=== PATIENT | male | born 1955 | race Caucasian/White ===

== ENCOUNTER 2019-02-19 20:19 | Inpatient (IN) | payer MEDICARE ==
[~2019-02-19] VITALS: Ht 185.4 cm; Wt 73.4 kg
[~2019-02-19 20:19] MED LIST: ACET-2247 PO; ATOR40TA28 PO; DIVA-78 PO; FAMO20 PO; FERR-89 PO; LOXA10CA PO; MELA3TAB66 PO; MULT-34 PO; RISP2 PO; TRAZ-252 PO
[2019-02-19 22:04] LABS: GLUCOSE,POINT OF CARE 119 MG/DL (70-110)
[2019-02-19 22:18] LABS: BASOPHILS % (AUTO) 0.8 % (0.0-2.0); EOSINOPHILS % (AUTO) 2.6 % (1.0-6.0); HEMATOCRIT 28.1 % (41-53); HEMOGLOBIN 8.9 g/dL (13.5-17.5); LYMPHOCYTES # (AUTO) 2.5 K/uL (1.0-4.8); LYMPHOCYTES % (AUTO) 30.6 % (22.0-44.0); MEAN CORPUSCULAR HEMOGLOBIN 33.5 pg (26.0-34.0); MEAN CORPUSCULAR HGB CONC 31.5 G/dL (31.0-37.0); MEAN CORPUSCULAR VOLUME 106 fL (80-100); MONOCYTES # (AUTO) 0.9 K/uL (0.1-1.0); MONOCYTES % (AUTO) 10.9 % (2.0-9.0); NEUTROPHILS # (AUTO) 4.6 K/uL (1.8-7.7); NEUTROPHILS % (AUTO) 55.1 % (40.0-70.0); PLATELET COUNT (AUTO) 383 K/uL (150-450); RED BLOOD CELL COUNT(AUTO) 2.65 MIL/uL (4.50-5.90); RED CELL DISTRIBUTION WIDTH 16.8 % (11.5-14.5)
[2019-02-19 22:37] LABS: AMMONIA 10 umol/L (11-32)
[2019-02-19 22:40] LABS: ALBUMIN 2.2 g/dL (3.4-5.0); BILIRUBIN,TOTAL 0.2 mg/dL (0.1-1.0); CALCIUM, TOTAL 10.2 mg/dL (8.8-10.5); CREATININE 4.56 mg/dL (0.60-1.30); POTASSIUM 3.8 mmol/L (3.5-5.1); TOTAL PROTEIN, SERUM 8.5 g/dL (6.4-8.2)
[2019-02-19 22:41] LABS: TROPONIN I < 0.02 ng/mL (0.00-0.05)
[2019-02-19 22:45] LABS: LACTIC ACID 1.4 mmol/L (0.4-2.0)
[2019-02-19 22:56] LABS: PROTHROMBIN TIME 10.7 SEC (9.4-11.6)
[2019-02-19] MEDS ORDERED: SODIUM CHLORIDE 0.9% 2,000 ML IV ONE (23:00)
[2019-02-19] MEDS ORDERED: 0.9% SODIUM CHLORIDE 10 ML SYRINGE IVP PRN (23:15)
[2019-02-19] MEDS ORDERED: ONDANSETRON HCL 4 MG/2 ML VIAL IVP PRN ×2 (23:15→23:30)
[2019-02-19] MEDS ORDERED: ACETAMINOPHEN 325 MG TABLET PO PRN ×2 (23:15→23:30)
[2019-02-19] MEDS ORDERED: MAGNESIUM HYDROXIDE SUSPENSION 30 ML UDCUP PO PRN (23:30)
[2019-02-19] MEDS ORDERED: BISACODYL 10 MG RECTAL RECTAL SUPPOSITORY PR PRN (23:30)
[2019-02-19] MEDS ORDERED: HYDROCODONE/ACETAMINOPHEN 5-325 MG TABLET PO PRN (23:30)
[2019-02-19] MEDS ORDERED: MORPHINE SULFATE 2 MG/ML SYRINGE IVP PRN (23:30)
[2019-02-19] MEDS ORDERED: DEXTROSE 5%-WATER 1,000 ML IV ONE (23:30)
[2019-02-19 23:56] LABS: APPEARANCE,URINE TURBID (CLEAR); BILIRUBIN,URINE NEGATIVE (NEGATIVE); GLUCOSE, URINE (UA) NEGATIVE (NEGATIVE); KETONES,URINE NEGATIVE (NEGATIVE); LEUKOCYTE ESTERASE ,URINE LARGE (NEGATIVE); NITRATE,URINE POSITIVE (NEGATIVE); OCCULT BLOOD,URINE LARGE (NEGATIVE); PH,URINE 5.5 (5.0-8.0); PROTEIN,URINE SEE CONFIRM (NEGATIVE); UROBILINOGEN,URINE 0.2 mg/dL (<=1.0)
[2019-02-20 00:10] LABS: BACTERIA,URINE Few /HPF (None Seen); RBC,URINE 51-100 /HPF (0-2); WBC,URINE 51-100 /HPF (0-5)
[2019-02-20 00:11] LABS: SULFOSALICYLIC ACID,URINE 1+ (Negative)
[2019-02-20 00:12] LABS: SQUAMOUS EPITHELIAL CELL,UR Few /LPF (None Seen)
[2019-02-20 00:45] VITALS: BP 112/71
[2019-02-20] MEDS: HEPARIN SODIUM,PORCINE 5,000 UNITS/ML VIAL SQ SCH ×4 (01:04→23:30)
[2019-02-20 05:29] VITALS: BP 120/64
[2019-02-20 07:04] LABS: BASOPHILS % (AUTO) 0.8 % (0.0-2.0); EOSINOPHILS % (AUTO) 2.8 % (1.0-6.0); HEMATOCRIT 30.7 % (41-53); HEMOGLOBIN 9.6 g/dL (13.5-17.5); LYMPHOCYTES # (AUTO) 2.3 K/uL (1.0-4.8); LYMPHOCYTES % (AUTO) 33.2 % (22.0-44.0); MEAN CORPUSCULAR HEMOGLOBIN 33.8 pg (26.0-34.0); MEAN CORPUSCULAR HGB CONC 31.4 G/dL (31.0-37.0); MEAN CORPUSCULAR VOLUME 108 fL (80-100); MONOCYTES # (AUTO) 0.8 K/uL (0.1-1.0); MONOCYTES % (AUTO) 11.2 % (2.0-9.0); NEUTROPHILS # (AUTO) 3.6 K/uL (1.8-7.7); PLATELET COUNT (AUTO) 302 K/uL (150-450); RED BLOOD CELL COUNT(AUTO) 2.85 MIL/uL (4.50-5.90); RED CELL DISTRIBUTION WIDTH 17.3 % (11.5-14.5)
[2019-02-20 07:13] LABS: CALCIUM, TOTAL 9.8 mg/dL (8.8-10.5); CREATININE 4.35 mg/dL (0.60-1.30); POTASSIUM 3.9 mmol/L (3.5-5.1)
[2019-02-20 07:52] VITALS: BP 103/72
[2019-02-20] MEDS: DOCUSATE SODIUM 100 MG CAPSULE PO SCH ×2 (09:00→21:08)
[2019-02-20] MEDS: RisperiDONE 2 MG TABLET PO SCH ×3 (09:00→23:30)
[2019-02-20] MEDS: PANTOPRAZOLE SODIUM 40 MG DR TABLET PO SCH (09:00)
[2019-02-20] MEDS: DIVALPROEX SODIUM 500 MG DR TABLET PO SCH ×2 (09:00→21:00)
[2019-02-20] MEDS: CefTRIAXone 1 GM/DEXTROSE 50 ML IV SCH (09:16)
[2019-02-20 10:57] VITALS: BP 117/70
[2019-02-20 16:48] VITALS: BP 133/84
[2019-02-20 19:52] VITALS: BP 121/78
[2019-02-20] MEDS: DEXTROSE 5%-WATER 1,000 ML IV SCH (20:14)
[2019-02-20] MEDS: ATORVASTATIN CALCIUM 40 MG TABLET PO SCH (21:08)
[2019-02-20] MEDS: TraZODone HCL 50 MG TABLET PO SCH (21:09)
[2019-02-20] MEDS: MELATONIN 3 MG TABLET PO SCH (21:10)
[2019-02-21 00:18] VITALS: BP 128/84
[2019-02-21 04:08] VITALS: BP 124/73
[2019-02-21 06:43] LABS: BASOPHILS % (AUTO) 0.4 % (0.0-2.0); EOSINOPHILS % (AUTO) 4.8 % (1.0-6.0); HEMATOCRIT 30.4 % (41-53); HEMOGLOBIN 9.6 g/dL (13.5-17.5); LYMPHOCYTES # (AUTO) 1.9 K/uL (1.0-4.8); LYMPHOCYTES % (AUTO) 27.7 % (22.0-44.0); MEAN CORPUSCULAR HEMOGLOBIN 33.9 pg (26.0-34.0); MEAN CORPUSCULAR HGB CONC 31.4 G/dL (31.0-37.0); MEAN CORPUSCULAR VOLUME 108 fL (80-100); MONOCYTES # (AUTO) 0.7 K/uL (0.1-1.0); MONOCYTES % (AUTO) 10.9 % (2.0-9.0); NEUTROPHILS # (AUTO) 3.8 K/uL (1.8-7.7); NEUTROPHILS % (AUTO) 56.2 % (40.0-70.0); PLATELET COUNT (AUTO) 266 K/uL (150-450); RED BLOOD CELL COUNT(AUTO) 2.82 MIL/uL (4.50-5.90)
[2019-02-21 06:49] LABS: CALCIUM, TOTAL 9.8 mg/dL (8.8-10.5); CREATININE 3.98 mg/dL (0.60-1.30); POTASSIUM 3.9 mmol/L (3.5-5.1)
[2019-02-21] MEDS: DEXTROSE 5%-WATER 1,000 ML IV SCH ×2 (07:34→18:25)
[2019-02-21 08:02] VITALS: BP 116/96
[2019-02-21] MEDS: RisperiDONE 2 MG TABLET PO SCH ×3 (08:57→21:00)
[2019-02-21] MEDS: HEPARIN SODIUM,PORCINE 5,000 UNITS/ML VIAL SQ SCH ×3 (08:57→23:57)
[2019-02-21] MEDS: DIVALPROEX SODIUM 500 MG DR TABLET PO SCH (08:57)
[2019-02-21] MEDS: DOCUSATE SODIUM 100 MG CAPSULE PO SCH ×2 (08:57→20:59)
[2019-02-21] MEDS: PANTOPRAZOLE SODIUM 40 MG DR TABLET PO SCH (08:57)
[2019-02-21] MEDS: CefTRIAXone 1 GM/DEXTROSE 50 ML IV SCH (08:59)
[2019-02-21 12:09] VITALS: BP 119/86
[2019-02-21 16:01] VITALS: BP 115/58
[2019-02-21 19:08] VITALS: BP 125/83
[2019-02-21] MEDS: ATORVASTATIN CALCIUM 40 MG TABLET PO SCH (21:00)
[2019-02-21] MEDS: MELATONIN 3 MG TABLET PO SCH (21:00)
[2019-02-21] MEDS: TraZODone HCL 50 MG TABLET PO SCH (21:00)
[2019-02-21] MEDS: DIVALPROEX SODIUM 125 MG DR CAPSULE PO SCH (21:00)
[2019-02-22 00:06] VITALS: BP 107/65
[2019-02-22 04:21] VITALS: BP 118/60
[2019-02-22] MEDS: DEXTROSE 5%-WATER 1,000 ML IV SCH ×2 (04:33→14:25)
[2019-02-22 07:45] VITALS: BP 106/62
[2019-02-22 08:05] LABS: BASOPHILS % (AUTO) 0.7 % (0.0-2.0); HEMATOCRIT 27.3 % (41-53); HEMOGLOBIN 9.1 g/dL (13.5-17.5); MEAN CORPUSCULAR HGB CONC 33.4 G/dL (31.0-37.0); MEAN CORPUSCULAR VOLUME 105 fL (80-100); MONOCYTES # (AUTO) 0.6 K/uL (0.1-1.0); NEUTROPHILS # (AUTO) 3.2 K/uL (1.8-7.7); NEUTROPHILS % (AUTO) 51.3 % (40.0-70.0); PLATELET COUNT (AUTO) 210 K/uL (150-450); RED BLOOD CELL COUNT(AUTO) 2.61 MIL/uL (4.50-5.90); RED CELL DISTRIBUTION WIDTH 16.7 % (11.5-14.5)
[2019-02-22] MEDS: CefTRIAXone 1 GM/DEXTROSE 50 ML IV SCH (08:10)
[2019-02-22] MEDS: PANTOPRAZOLE SODIUM 40 MG DR TABLET PO SCH (08:12)
[2019-02-22] MEDS: DOCUSATE SODIUM 100 MG CAPSULE PO SCH ×2 (08:12→21:14)
[2019-02-22] MEDS: RisperiDONE 2 MG TABLET PO SCH ×3 (08:12→21:15)
[2019-02-22] MEDS: HEPARIN SODIUM,PORCINE 5,000 UNITS/ML VIAL SQ SCH ×2 (08:12→17:00)
[2019-02-22] MEDS: DIVALPROEX SODIUM 125 MG DR CAPSULE PO SCH ×2 (08:12→21:15)
[2019-02-22 08:18] LABS: CALCIUM, TOTAL 9.1 mg/dL (8.8-10.5); CREATININE 3.36 mg/dL (0.60-1.30); MAGNESIUM 1.9 mg/dL (1.80-2.40); PHOSPHORUS 4.6 mg/dL (2.5-4.9); POTASSIUM 3.9 mmol/L (3.5-5.1)
[2019-02-22 11:21] VITALS: BP 106/65
[2019-02-22] MEDS ORDERED: *CLINICAL-LEVOFLOXACIN IVPB DOSING CLINICAL ONE (11:30)
[2019-02-22] MEDS: LEVOFLOXACIN 750 MG/D5% WATER 150 ML IV SCH (14:26)
[2019-02-22 15:12] VITALS: BP 104/65
[2019-02-22 20:20] VITALS: BP 103/72
[2019-02-22] MEDS: MELATONIN 3 MG TABLET PO SCH (21:15)
[2019-02-22] MEDS: TraZODone HCL 50 MG TABLET PO SCH (21:15)
[2019-02-22] MEDS: ATORVASTATIN CALCIUM 40 MG TABLET PO SCH (21:15)
[2019-02-23] VITALS (7 sets, daily range): BP systolic 103–143; BP diastolic 58–85
[2019-02-23] MEDS: HEPARIN SODIUM,PORCINE 5,000 UNITS/ML VIAL SQ SCH ×4 (00:47→23:21)
[2019-02-23] MEDS: ZOLPIDEM TARTRATE 5 MG TABLET PO PRN ×2 (00:47→23:21)
[2019-02-23] MEDS: DEXTROSE 5%-WATER 1,000 ML IV SCH ×2 (06:13→17:43)
[2019-02-23] MEDS: DIVALPROEX SODIUM 125 MG DR CAPSULE PO SCH ×2 (08:31→22:00)
[2019-02-23] MEDS: RisperiDONE 2 MG TABLET PO SCH ×3 (08:31→21:59)
[2019-02-23] MEDS: DOCUSATE SODIUM 100 MG CAPSULE PO SCH ×2 (08:31→21:59)
[2019-02-23] MEDS: PANTOPRAZOLE SODIUM 40 MG DR TABLET PO SCH (08:31)
[2019-02-23 09:02] LABS: CALCIUM, TOTAL 9.3 mg/dL (8.8-10.5); CREATININE 3.18 mg/dL (0.60-1.30); MAGNESIUM 1.8 mg/dL (1.80-2.40); PHOSPHORUS 3.7 mg/dL (2.5-4.9)
[2019-02-23] MEDS: TraZODone HCL 50 MG TABLET PO SCH (21:59)
[2019-02-23] MEDS: ATORVASTATIN CALCIUM 40 MG TABLET PO SCH (21:59)
[2019-02-23] MEDS: MELATONIN 3 MG TABLET PO SCH (21:59)
[2019-02-24 05:15] VITALS: BP 133/62
[2019-02-24 05:37] LABS: BASOPHILS % (AUTO) 0.3 % (0.0-2.0); EOSINOPHILS % (AUTO) 5.4 % (1.0-6.0); HEMATOCRIT 26.3 % (41-53); HEMOGLOBIN 8.5 g/dL (13.5-17.5); LYMPHOCYTES # (AUTO) 1.9 K/uL (1.0-4.8); LYMPHOCYTES % (AUTO) 30.6 % (22.0-44.0); MEAN CORPUSCULAR HGB CONC 32.4 G/dL (31.0-37.0); MEAN CORPUSCULAR VOLUME 105 fL (80-100); MONOCYTES # (AUTO) 0.5 K/uL (0.1-1.0); MONOCYTES % (AUTO) 7.8 % (2.0-9.0); NEUTROPHILS # (AUTO) 3.5 K/uL (1.8-7.7); NEUTROPHILS % (AUTO) 55.9 % (40.0-70.0); PLATELET COUNT (AUTO) 193 K/uL (150-450); RED CELL DISTRIBUTION WIDTH 16.1 % (11.5-14.5)
[2019-02-24 05:53] LABS: CALCIUM, TOTAL 9.3 mg/dL (8.8-10.5); CREATININE 3.04 mg/dL (0.60-1.30); MAGNESIUM 1.9 mg/dL (1.80-2.40); PHOSPHORUS 3.7 mg/dL (2.5-4.9); POTASSIUM 4.2 mmol/L (3.5-5.1)
[2019-02-24] MEDS ORDERED: [UNRECOGNIZED DRUG - CODE] IV (06:20)
[2019-02-24] MEDS: DOCUSATE SODIUM 100 MG CAPSULE PO SCH (08:58)
[2019-02-24] MEDS: RisperiDONE 2 MG TABLET PO SCH (08:58)
[2019-02-24] MEDS: PANTOPRAZOLE SODIUM 40 MG DR TABLET PO SCH (08:58)
[2019-02-24] MEDS: DIVALPROEX SODIUM 125 MG DR CAPSULE PO SCH (08:58)
[2019-02-24] MEDS: HEPARIN SODIUM,PORCINE 5,000 UNITS/ML VIAL SQ SCH (08:58)
[2019-02-24 11:29] VITALS: BP 132/62
[2019-02-24] MEDS ORDERED: SODIUM CHLORIDE 0.9% 100 ML ONE (11:29)
[2019-02-24] MEDS: LEVOFLOXACIN 750 MG/D5% WATER 150 ML IV SCH (11:32)
[2019-02-24 15:15] VITALS: BP 94/70
== END 2019-02-24 15:30 | DRG 682 ==
LOC: EMS 20:22 → 5S 23:22
PROVIDERS: ADMIT Internal Medicine; ATTEND Internal Medicine
DX: N17.9 Acute kidney failure, unspecified (principal); G93.41 Metabolic encephalopathy; N39.0 Urinary tract infection, site not specified; E87.0 Hyperosmolality and hypernatremia; E44.0 Moderate protein-calorie malnutrition; F20.9 Schizophrenia, unspecified; D64.9 Anemia, unspecified; N18.9 Chronic kidney disease, unspecified; E86.0 Dehydration; E78.5 Hyperlipidemia, unspecified; Z68.21 Body mass index [BMI] 21.0-21.9, adult
CPT/HCPCS: 51702; 83605; 83735; 84100; 87040; 87081; 87086; 92610; 93005; 97110; 97162; 97167; 97530; 97535; 99291; G0378; J0696; J1644; J1956; J7030; J7050; J7060